=== PATIENT | female | born 1955 ===

== ENCOUNTER 2016-10-25 12:25 | Day surgery (SDC) | payer BC, OTHER ==
--- NOTE | ~2016-10-25 | EGD ---
EGD REPORT [facility] [address] [id number] NAME: JESSICA CHEN : 57 STATUS : REG [facility]#: [id number] AGE: 60 ADM/REG DATE : 10/25/16 MR#: [id number] REPORT SERV DATE: 10/25/16 DICTATED BY: YUNIEL RAINEY DATE: 10/25/16 REPORT STATUS : Draft TRANSCRIBED BY: [facility] DATE: 10/25/16 [facility] Center Patient Name: Jessica Chen Date of : 1955 Attending MD: BELEN RAINEY MD Procedure Date No Time: 10/25/2016 Procedure: Colonoscopy Indications: Screening in patient at increased risk: Colorectal cancer in mother 60 or older, Last colonoscopy: June 2011 Referring MD: LUNA ADAMS Medicines: See the Anesthesia note for documentation of the administered medications Complications: No immediate complications. Estimated blood loss: None. Procedure: Pre-Anesthesia Assessment: - ASA Grade Assessment: III - A patient with severe systemic disease. - Prior to the procedure, a History and Physical was performed, and patient medications and allergies were reviewed. The patient's tolerance of previous anesthesia was also reviewed. The risks and benefits of the procedure and the sedation options and risks were discussed with the patient. All questions were answered, and informed consent was obtained. Prior Anticoagulants: The patient has taken no previous anticoagulant or antiplatelet agents. After reviewing the risks and benefits, the patient was deemed in satisfactory condition to undergo the procedure. After I obtained informed consent, the scope was passed under direct vision. Throughout the procedure, the patient's blood pressure, pulse, and oxygen saturations were monitored continuously. The PCF [id number] was introduced through the anus and advanced to the cecum, identified by appendiceal orifice and ileocecal valve. The ileocecal valve, appendiceal orifice and rectum were photographed. The entire colon was examined. The colonoscopy was performed without difficulty. The patient tolerated the procedure well. The quality of the bowel preparation was adequate. Findings: The perianal and digital rectal examinations were normal. A sessile polyp was found in the cecum. The polyp was 4 mm in size. The polyp was removed with a piecemeal technique using a hot biopsy forceps. Resection and retrieval were complete. EGD REPORT [place] [id number] [place]. [address] NAME: JESSICA CHEN : [birth year] STATUS : REG [facility]#: [id number] AGE: 60 ADM/REG DATE : 10/25/16 MR#: [id number] REPORT SERV DATE: 10/25/16 DICTATED BY: YUNIEL RAINEY DATE: 10/25/16 REPORT STATUS : Draft TRANSCRIBED BY: [facility] DATE: 10/25/16 Non-bleeding internal hemorrhoids were found during retroflexion and were Grade I (internal hemorrhoids that do not prolapse). No other significant abnormalities were identified in a careful examination of the remainder of the colon. Impression: - One 4 mm polyp in the cecum. Resected and retrieved. - Non-bleeding internal hemorrhoids. Recommendation: - Patient has a contact number available for emergencies. The signs and symptoms of potential delayed complications were discussed with the patient. Return to normal activities tomorrow. Written discharge instructions were provided to the patient. - Regular diet. - Discharge patient to home. - Continue present medications. - Await pathology results. - Repeat colonoscopy in 5 years for surveillance. Procedure Code(s): --- Professional --- 52556, Colonoscopy, flexible, proximal to splenic flexure; with removal of tumor(s), polyp(s), or other lesion(s) by hot biopsy forceps or bipolar cautery Diagnosis Code(s): --- Professional --- D12.0, Benign neoplasm of cecum K64.0, First degree hemorrhoids Z12.11, Encounter for screening for malignant neoplasm of colon Z80.0, Family history of malignant neoplasm of digestive organs CPT copyright 2013 [employer]. All rights reserved. The codes documented in this report are preliminary and upon heeler machine review may be revised to meet current compliance requirements. BELEN RAINEY MD 10/25/2016 2:04 PM This report has been signed electronically. Number of Addenda: 0 Note Initiated On: 10/25/2016 1:40 PM Scope Withdrawal Time 0 hours 8 minutes 26 seconds EGD REPORT [facility] [address] [address] NAME: JESSICA CHEN : [birth year] STATUS : REG [facility] [place] PAT#: [id number] AGE: 60 ADM/REG DATE : 10/25/16 MR#: [id number] REPORT SERV DATE: 10/25/16 DICTATED BY: YUNIEL RAINEY DATE: 10/25/16 REPORT STATUS : Draft TRANSCRIBED BY: [employer] DATE: 10/25/16 [address] [id number]
[~2016-10-25 12:25] MED LIST: ADVAIR250 INH; B12250T PO; GYNODIOL0.5 MG PO; IPRA17AE INH; KLOR-CON 1010 MEQ PO; NOXAFIL PO; SPIRO25 PO; TOBRAMYCIN INH; VITAMIN D31000 UNIT PO; ZANTAC150 MG PO; ZITH250 PO
== END 2016-10-25 23:59 | disposition home or self-care (01) ==
LOC: DMU 12:25
PROVIDERS: Internal Medicine Gastroenterology
PROC: 0DBH8ZZ Excision of Cecum, Via Natural or Artificial Opening Endoscopic (ICD-10-PCS; principal; 2016-10-25 14:00)
DX: Z12.11 Encounter for screening for malignant neoplasm of colon (principal); D12.0 Benign neoplasm of cecum; K64.0 First degree hemorrhoids; J45.909 Unspecified asthma, uncomplicated; G47.33 Obstructive sleep apnea (adult) (pediatric); K21.9 Gastro-esophageal reflux disease without esophagitis; N20.0 Calculus of kidney; J44.9 Chronic obstructive pulmonary disease, unspecified; Z86.19 Personal history of other infectious and parasitic diseases; Z80.0 Family history of malignant neoplasm of digestive organs; Z90.710 Acquired absence of both cervix and uterus; Z87.442 Personal history of urinary calculi; Z87.09 Personal history of other diseases of the respiratory system; Z99.81 Dependence on supplemental oxygen; Z79.899 Other long term (current) drug therapy; Z79.2 Long term (current) use of antibiotics; Z79.52 Long term (current) use of systemic steroids
CPT/HCPCS: 88305